=== PATIENT | male | born 1960 | race Caucasian/White ===

== ENCOUNTER 2016-09-19 17:48 | Emergency (ER) | payer OTHER ==
[2016-09-19] MEDS ORDERED: Lidocaine 2% 20ml Vial ONE (18:20)
--- NOTE | 2016-09-19 18:48 | Diagnostic Imaging Report ---
ANABEL LUCIANO~ [facility] [address] 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 Physician: ANABEL LUCIANO ~ ~ ~ ~ Left 3rd finger, 3 views. History: LEFT 3RD DIGIT, LACERATION, PAIN, SWELLING AFTER SHUTTING THE DISTAL PHALANX IN A GARAGE DOOR THIS EVENING. Findings: The osseous structures are intact without evidence of acute fracture. The joint space seen and alignment are normal. There is no soft tissue swelling. No radiopaque soft tissue foreign body identified. Impression: 1. No acute osseous abnormality. ~ Electronically signed on Sep 19, 2016 6:19:04 PM DEALER SALES MANAGER by: Presley CHAN
[2016-09-19] MEDS ORDERED: DIPH,PERTUSS(ACELL),TET VAC/PF 0.5 ML DISP.SYRIN IM ONE (19:30)
[2016-09-19 21:57] VITALS: BP 128/80
--- NOTE | 2016-09-20 00:20 | ED Physician Documentation ---
Hand Injury - HISTORIAN Historian: patient - HPI Stated Complaint: Finger Injury Chief Complaint: Hand Injury Additional Information: smashed left 3rd finger in garage door Onset: just prior to arrival Where: home Severity: moderate Duration: persistent since (injury) Context: laceration Location of Injury: other (left 3rd fingertip) Modifying Factors: none Further Comments: no - ROS CONST: no problems GI/: denies: problems urinating, nausea, vomiting NEURO: none CVS/RESP: none EYES/ENT: none MS/SKIN/LYMPH: other (pain left 3rd fingertip) - PAST HX Past History: other (htn) Immunizations: tetanus Allergies/Adverse Reactions: Allergies Allergy/AdvReac Type Severity Reaction Status Date / Time No Known Drug Allergies Allergy Verified 07/23/16 18:37 Home Medications: Ambulatory Orders Medication Instructions Recorded Ketorolac Tromethamine [Toradol] 10 mg PO TID #15 tablet 07/23/16 Tamsulosin HCl [Flomax] 0.4 mg PO D #7 cap.er.24h 07/23/16 - SOCIAL HX Smoking History: cigarettes Alcohol Use: occasionally Drug Use: none - FAMILY HX Family History: no significant history - VITAL SIGNS Vital Signs: Vital Signs Temp Pulse Resp BP Pulse Ox 97 F L 94 H 16 128/80 99 09/19/16 17:50 09/19/16 21:45 09/19/16 21:45 09/19/16 21:45 09/19/16 21:45 - REVIEWED ASSESSMENTS Nursing Assessment Reviewed: Yes Vitals Reviewed: Yes Procedures Wound Location: other (left 3rd fingertip) Wound Length: 3 cm total Wound's Depth, Shape: into muscle, flap Wound Explored: no foreign body removed Irrigated w/ Saline (ccs): 100 Betadine Prep?: Yes Anesthesia: 2% Lidocaine, Other (nerve block performed) Volume of Anesthetic: 12 cc Wound Debrided: none Wound Repaired With: sutures Suture Size/Type: 3:0, nylon Number of Sutures: 12 Layer Closure?: No Sterile Dressing Applied?: Yes Splint Applied?: No Sling Applied?: No Nail Trepanation Location: left 3rd fingernail Method of Drainage: 18 gauge needle Sterile Dressing Applied: Yes Finger Splint: No Progress - Results/Orders Results/Orders: x-ray left hand ordered - Progress Progress: pt stable entire time in er, see procedural note Critical Care Note - Critical Care Note Total Time (mins): 0 ED Results Lab/Radiology - Lab Results Lab Results: none ordered - Radiology Radiology Impressions: x-ray left 3rd finger neg for fx - Orders Orders: ED Orders Category Date Time Status XRAY 3RD FINGER [FINGER 2 VIEWS OR MORE] [RAD] Stat Exams 09/19/16 Completed Diph,Pertuss(Acell),Tet Vac/Pf [Adacel] Med 09/19/16 19:30 Discontinued 0.5 ml IM .ONCE ONE Lidocaine 2% 20ml Vial [Xylocaine] Med 09/19/16 18:20 Discontinued 400 mg .ROUTE .STK-MED ONE Hand Injury Physical Exam - Exam General Appearance: moderate distress Hand: other (left 3rd fingertip circumferential laceration with near complete avulsion) Wrist: normal inspection, non-tender, no evidence of injury Neuro: sensation nml, motor nml Vascular: no vascular compromise Tendons: tendon function nml Forearm/Elbow/Arm: uninjured above wrist Skin: warm/dry Head/ENT: nml inspection, pharynx nml Neck/Back: nml inspection, non-tender Resp/CVS: chest non-tender, breath sounds nml, heart sounds nml, no resp. distress, lungs clear, reg. rate & rhythm Abdomen: non-tender, no organomegaly, nml bowel sounds, no distention Discharge Clincal Impression: Finger laceration Qualifiers: Encounter type: initial encounter Qualified Code(s): S61.219A - Laceration without foreign body of unspecified finger without damage to nail, initial encounter Referrals: Sarah Jacobsen MD [Primary Care Provider] - 2 Days Home Medications: Ambulatory Orders Ketorolac Tromethamine [Toradol] 10 mg PO TID #15 tablet 07/23/16 Tamsulosin HCl [Flomax] 0.4 mg PO D #7 cap.er.24h 07/23/16 Comments: discharged with post laceration repair instructions Condition: Stable Disposition: 01 HOME, SELF-CARE Decision to Admit: NO Decision Time: 21:30
== END 2016-09-19 21:45 | disposition home or self-care (01) ==
LOC: ED 17:48
DX: S61.219A Laceration without foreign body of unspecified finger without damage to nail, initial encounter (principal)
CPT/HCPCS: 12002; 73140; 90471; 90715; 99283

== ENCOUNTER 2017-01-12 08:19 | Outpatient (CLI) | payer OTHER | END 2017-01-12 08:53 | LOC: LAB 08:19 | PROVIDERS: ATTEND Urology | DX: R97.8 Other abnormal tumor markers (principal) | CPT/HCPCS: 36415; 84153 ==

== ENCOUNTER 2017-06-11 16:58 | Emergency (ER) | payer OTHER ==
--- NOTE | 2017-06-11 17:18 | ED Physician Documentation ---
Lower Extremity Injury - HISTORIAN Historian: patient - HPI Stated Complaint: foot injury Chief Complaint: Lower Extremity Injury Additional Information: droffed 30pound packAge on rt great and second toe w/pain bruising-unable wt bear on this side foot Onset: hours (08) Where: work Severity: moderate Context: direct blow Associated Symptoms:: swelling, snapping sensation, unable to bear weight. denies: numbness distally Modifying Factors:: pain on movement - ROS CONST: no problems CVS/RESP: none. denies: shortness of breath, cough MS/SKIN/LYMPH: none NEURO: denies: headache, head injury - PAST HX Past History: other (htn) Allergies/Adverse Reactions: Allergies Allergy/AdvReac Type Severity Reaction Status Date / Time No Known Drug Allergies Allergy Verified 06/11/17 17:14 - SOCIAL HX Smoking History: cigarettes Alcohol Use: occasionally Drug Use: none - FAMILY HX Family History: no significant history - VITAL SIGNS Vital Signs: Vital Signs Temp Pulse Resp BP Pulse Ox 98.8 F 85 18 173/92 99 06/11/17 17:01 06/11/17 17:01 06/11/17 17:01 06/11/17 17:01 06/11/17 17:01 - REVIEWED ASSESSMENTS Nursing Assessment Reviewed: Yes Vitals Reviewed: Yes ED Results Lab/Radiology - Radiology Radiology Impressions: comminuted fracture great toe - Orders Orders: ED Orders Category Date Time Status FOOT 3 VIEWS OR MORE [RAD] Stat Exams 06/11/17 Completed Lower Extremities Injury Phy - Physical Exam General Appearance: moderate distress Foot: right foot: ecchymosis, limited range of motion Gait: limited by pain Neuro/Vascular/Tendon: no vascular compromise, motor nml, sensation nml, abnml color, abnml warmth, abnml cap refill Head/ENT: nml inspection Neck/Back: nml inspection Resp/CVS: chest non-tender, breath sounds nml, heart sounds nml, lungs clear, reg. rate & rhythm Abdomen: non-tender Discharge Clincal Impression: comminuteed great toe fracture Referrals: Sarah Jacobsen MD [Primary Care Provider] - 2 Days Condition: Good Disposition: 01 HOME, SELF-CARE Decision to Admit: NO Decision Time: 18:08
--- NOTE | 2017-06-11 17:57 | Diagnostic Imaging Report ---
ANGEL BALLARD [facility] [address] [facility].[address] 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 1st metatarsophalangeal articular degenerative changes. No other cortical abnormalities. No soft tissue abnormality. Impression: Fracture distal phalanx 1st digit. Articular degenerative changes. Electronically signed on Jun 11, 2017 5:56:17 PM DOOR FRAME BUILDER by: Isiah CHAN
[2017-06-11 18:17] VITALS: BP 168/88
== END 2017-06-11 18:10 | disposition home or self-care (01) ==
LOC: ED 16:58
DX: S92.401A Displaced unspecified fracture of right great toe, initial encounter for closed fracture (principal); X58.XXXA Exposure to other specified factors, initial encounter; Y93.9 Activity, unspecified; Y99.9 Unspecified external cause status
CPT/HCPCS: 73630; 99283

== ENCOUNTER 2018-01-11 07:48 | Day surgery (SDC) | payer OTHER ==
[2018-01-11] MEDS ORDERED: LACTATED RINGERS 1,000 ML IV.SOLN IV ONE (07:49)
[2018-01-11] MEDS ORDERED: PROPOFOL 500 MG/50 ML VIAL IV ONE (07:49)
[2018-01-11] MEDS ORDERED: SALINE FLUSH 10 ML DISP.SYRIN IVF ONE (07:49)
--- NOTE | 2018-01-14 09:59 | GI Report ---
REFERRING PHYSICIAN: Dr. Sarah Jacobsen [employer]: Geovanny Cano MD PROCEDURE MEDICATION: Propofol as per anesthesia. INDICATIONS: This 57-year-old man has had a number of polyps on previous colonoscopies. He is referred for a follow-up evaluation. He said he did have an episode of some blood with his stool. Unfortunately, he still smokes. He has smoked a pack a day for 35 years. PROCEDURE PERFORMED: Colonoscopy and polypectomy. PROCEDURE: An Olympus video colonoscope was advanced to the rectum. An atonic redundant colon and it took some maneuvering to finally reach the base of the cecum. In the ascending colon at about 3 cm above the ileocecal valve, the patient had a 3 mm flat polyp suspicious for a serrated adenoma removed with a cold snare. At the hepatic flexure, there is another flat polyp, possibly a serrated adenoma , removed with a cold snare. The remaining part of the transverse colon, descending colon, and sigmoid with a little redundancy. Retroflexion of the rectum does show hemorrhoids. He does have a couple of hyperplastic 2 mm polyps in the rectum that were not removed. Patient tolerated the procedure well. FINDINGS: Two polyps removed. One in the ascending colon and one near the hepatic flexure. RECOMMENDATIONS: 1. Increase fiber in the diet. 2. Pending the pathology of the polyps, he needs his colon re-looked again at least within 5 years. 3. Again, recommended discontinue tobacco use, which is a significant risk factor for colon polyp formation and colon cancer. cc: Dr. Sarah CHAN
== END 2018-01-11 07:50 ==
LOC: OPSURG 07:48
PROVIDERS: ATTEND Internal Medicine Gastroenterology
DX: D12.6 Benign neoplasm of colon, unspecified (principal)
CPT/HCPCS: J2704; J7120; 45385; S1016

== ENCOUNTER 2018-11-03 09:52 | Outpatient (CLI) | payer OTHER ==
--- NOTE | 2018-11-03 13:11 | Diagnostic Imaging Report ---
TYRELL BAH [facility] [address] [facility].[address] [address] Report Submission Date: Nov 03, 2018 11:22:12 AM CDT Patient Study Name: SHAKIRA SCHMID Date: Nov 03, 2018 10:01:11 AM CDT Modality Type: US Gender: M Description: US DUPLEX ARTERIAL LE BILAT : 58 Institution: [facility] Physician: TYRELL BAH EXAMINATION: US DUPLEX ARTERIAL LE BILAT HISTORY: diminished pulses feet COMPARISON: None FINDINGS: In the right lower extremity, there is occlusion of the proximal superficial femoral artery with reconstitution at its distal segment. In the distal arteries of the right leg, there are decreased velocities with loss of the normal triphasic waveforms, again consistent with proximal stenosis /occlusion with reconstitution. The dorsalis pedis artery is patent. In the left lower extremity, there is occlusion of the proximal superficial femoral artery with reconstitution at its distal segment. In the distal arteries of the left leg, there are decreased velocities with loss of the normal triphasic waveforms, again consistent with proximal stenosis /occlusion with reconstitution. The dorsalis pedis artery is patent. 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 CTA runoff may be helpful for further evaluation. Electronically signed on Nov 03, 2018 11:22:12 AM CDT by: Main CHAN
== END 2018-11-03 10:42 ==
LOC: RAD 09:52
PROVIDERS: ATTEND Family Medicine
DX: I74.3 Embolism and thrombosis of arteries of the lower extremities (principal)
CPT/HCPCS: 93925